=== PATIENT | female | born 1975 | race Caucasian/White ===

== ENCOUNTER 2017-03-27 13:00 | Inpatient (IN) | payer MEDICARE, MEDICAID ==
[~2017-03-27] VITALS: Ht 154.9 cm; Wt 77.9 kg
--- NOTE | ~2017-03-27 | OR ---
PATIENT'S NAME: CARTER PINA [facility] AGE: 41 Y [address] ROOM: [place] [address] LOCATION: [facility] ADMIT DATE: 04/09/2017 OR/Procedure Report DISCHARGE DATE: FAMILY PHYSICIAN: Brendan Cedeno ATTENDING PHYSICIAN: ADRIAN SHAVER SURGEON: Adrian Shaver MD REDRYING MACHINE OPERATOR: 1. NATE Mcmillan. 2. Abdullahi Fisher CST/LAYLA. DATE OF PROCEDURE: 04/09/2017 PRE-OP DIAGNOSIS: Degenerative joint disease left knee. POST-OP DIAGNOSIS: Degenerative joint disease left knee. OPERATION: Left total knee arthroplasty with computer navigation. ANESTHESIA: Spinal anesthesia plus adductor canal block plus subcutaneous and periarticular local anesthesia (ropivacaine with epinephrine and Toradol). ESTIMATED BLOOD LOSS: Less than 10 mL. DRAIN: None. SPECIMEN: None. COMPLICATIONS: None. IMPLANT SYSTEM: [place] Triathlon Size 2 left posterior stabilized femoral component Size 1 universal modular tibial baseplate 9 mm posterior stabilized size 1 X3 tibial polyethylene insert 29 mm Oval X3 patella component (triple pegged). INDICATIONS FOR SURGERY: The patient is a 41-year-old female who presents with advanced left knee degenerative joint disease and associated severely compromised activities of daily living. The patient has decided to proceed with knee replacement after having been thoroughly counseled regarding the associated risks, benefits, and limitations. We have specifically reviewed the risks and implications of infection, deep venous thrombosis, pulmonary embolism, mortality, neurovascular complications, blood transfusion (and associated potential for disease transmission or transfusion reaction), stiffness, instability, mechanical deterioration of the components (due to wear and or loosening), and the potential need for revision. We have also emphasized the importance of active involvement and compliance with post- operative physical therapy as a means of optimizing range of motion and PATIENT'S NAME: CARTER PINA [facility] AGE: 41 Y [address] ROOM: [place] [address] LOCATION: [facility] ADMIT DATE: 04/09/2017 OR/Procedure Report DISCHARGE DATE: FAMILY PHYSICIAN: Brendan Cedeno ATTENDING PHYSICIAN: ADRIAN SHAVER functional recovery. Informed consent has been granted. DESCRIPTION OF PROCEDURE: The patient was positioned supine after administration of anesthesia and prophylactic antibiotics. A well-padded pneumatic tourniquet was placed around the left proximal thigh, and the left lower extremity was prepped and draped with vigilant sterile technique. The patient's name as well as the intended operative side and procedure were confirmed with a verbal time-out involving myself, the circulating nurse, the scrub nurse, and the anesthesiologist. Examination under anesthesia demonstrated no active skin lesions or masses. There was no erythema. There was no abnormal warmth. There was a moderate effusion. Range of motion under anesthesia was from full extension to 130 degrees of flexion. There was no ligamentous insufficiency. The left lower extremity was elevated and exsanguinated with an Esmarch wrap, and the pneumatic tourniquet was inflated to 300mmHg. The knee was approached through a longitudinal midline incision. A medial parapatellar arthrotomy was performed and the patella was everted. Examination of the joint space demonstrated a moderate amount of benign-appearing translucent synovial fluid. There was a moderate sized osteophyte at the lateral aspect of the intercondylar notch. There were no loose bodies. There was no synovitis. The cruciate ligaments were intact. There was full-thickness loss of articular cartilage involving a 2 cm diameter region of the medial tibial plateau and a 2 cm x 1 cm region at the medial half of the medial femoral condyle. There were small osteophytes at the medial and lateral femoral condyles as well as the medial tibial plateau. There were small osteophytes at the medial and lateral margins of the femoral trochlea as well as the superior aspect of the patella. There were moderate grade 3 degenerative changes at the apex of the patella. There were grade 2 degenerative changes at the lateral femoral condyle and the lateral facet of the patella. There was mild inner perimeter tearing of the medial meniscus. The lateral meniscus was intact. Remnants of the menisci and cruciate ligaments were excised. The RxEye computer navigation femoral tracker was pinned in place at the distal aspect of the femoral trochlea. Absence of motion between the femur and the tracking device was confirmed manually and visually. Femoral osseous landmarks were obtained in order to calibrate the computer navigation system. Landmarks included the center of rotation of the ipsilateral hip, the center-point of the distal femur, the femoral AP axis, 57 points on the medial femoral condyle articular surface, and 57 points on the lateral femoral condyle articular surface. The RxEye computer navigation system was subsequently utilized to position the distal femoral resection block such that the distal femoral PATIENT'S NAME: CARTER PINA [facility] AGE: 41 Y [address] ROOM: [id number] [place], [place] [id number] LOCATION: [facility] ADMIT DATE: 04/09/2017 OR/Procedure Report DISCHARGE DATE: FAMILY PHYSICIAN: Brendan Cedeno ATTENDING PHYSICIAN: ADRIAN SHAVER resection was performed perfectly perpendicular to the femoral mechanical axis. The distal femoral resection was performed with a [employer] oscillating saw. The RxEye computer navigation tibial tracker was pinned in place at the anterior aspect of the tibial plateau. Absence of motion between the tibia and the tracking device was confirmed manually and visually. Tibial osseous landmarks were obtained in order to calibrate the computer navigation system. Landmarks included the center-point of the tibial plateau, the AP tibial axis, 57 points on the medial tibial plateau articular surface, 57 points on the lateral tibial plateau articular surface, the medial malleolus, and the lateral malleolus. The RxEye computer navigation system was subsequently utilized to position the proximal tibial resection block such that the proximal tibial resection was performed perfectly perpendicular to the tibial mechanical axis. The proximal tibial resection was performed with a [employer] oscillating saw. Perpendicularity of the tibial resection with respect to the tibial shaft axis was reconfirmed by inserting a spacer- block attached to an extramedullary guide kristine. External rotation of the anterior and posterior femoral resections was set parallel to the epicondylar axis and carefully adjusted in order to create a rectangular flexion gap. The box resection was performed with a reciprocating saw. Anterior and posterior chamfer resections were performed with the oscillating saw. Posterior condyle osteophytes were excised with an osteotome. All other osteophytes were excised with a rongeur. Resection of all remnants of the menisci was reconfirmed. Flexion and extension gaps were confirmed to be symmetric and well balanced with a spacer-block technique. The patella resection was performed with an oscillating saw such that the composite thickness of the reconstructed patella was equivalent to the thickness of the mary's igloo patella. Patella tracking was optimal and there was no need for a lateral retinacular release. All trial components were removed and all prepared osseous surfaces were thoroughly irrigated with pulsatile saline lavage and dried prior to cementing all three components in a single stage using [place] Simplex cement containing pre-mixed tobramycin. All extruded excess cement was removed. The entire joint space was thoroughly inspected and thoroughly irrigated with bacteriostatic pulsatile saline lavage to assure that there was no residual debris of any sort. Final range of motion was from full extension (with no passive hyperextension) to 130 degrees of flexion. Patella tracking was reconfirmed to be optimal. There was excellent anteroposterior stability at 90 degrees of flexion. There was 0 mm of medial lift-off to valgus stress in full extension. There was 1 PATIENT'S NAME: CARTER PINA [facility] AGE: 41 Y [address] ROOM: [place] [address] LOCATION: [facility] ADMIT DATE: 04/09/2017 OR/Procedure Report DISCHARGE DATE: FAMILY PHYSICIAN: Brendan Cedeno ATTENDING PHYSICIAN: ADRIAN SHAVER mm of lateral lift-off to varus stress in full extension. The arthrotomy was closed with multiple simple and [id number] interrupted #1 Vicryl. Subcutaneous tissues were thoroughly re-irrigated with bacteriostatic pulsatile saline lavage. Subcutaneous tissues were re- approximated with simple buried interrupted #0 Vicryl sutures. The skin was closed with simple buried interrupted 2-0 Vicryl sutures followed by surgical valentino. The dressing consisted of Xeroform gauze, 4x4 gauze, ABD pads and two 6-inch Rodrigo Wraps. There were no intra-operative complications. It should be noted that the physician's clinical data assistant played an active, integral role throughout this entire operation. By providing expert retraction, they greatly facilitated and expedited safe and effective exposure of the distal femur, proximal tibia and patella for preparation and implantation of the components. They were also actively involved in the patient's positioning, prepping and draping, as well as wound closure. MD ALEXYS RUSH/erica /[id number] d: 04/09/172226 t: 06/07/17 2151, OPERATIVE SUMMARY
--- NOTE | ~2017-03-27 | DS ---
PATIENT'S NAME: STANLEY PINA [facility] AGE: 41 Y [address] ROOM: [place] [address] LOCATION: [facility] ADMIT DATE: 04/09/2017 Discharge Summary DISCHARGE DATE: 04/11/2017 FAMILY PHYSICIAN: Brendan Cedeno ATTENDING PHYSICIAN: Prem Gutierrez PRIMARY DIAGNOSIS: Degenerative joint disease of the left knee. SECONDARY DIAGNOSES: 1. Anxiety and depression. 2. Gastroesophageal reflux disease. 3. Post myocardial infarction. 4. Mild mental retardation. 5. Obstructive sleep apnea. 6. Asthma. 7. Hyperlipidemia. PROCEDURE PERFORMED: Left total knee arthroplasty with computer navigation. HISTORY: The patient is a 41-year-old female, who presents with advanced left knee degenerative joint disease and associated severely compromised activities of daily living. The patient has decided to proceed with total knee arthroplasty after having been thoroughly counseled regarding the risks, benefits, limitations and alternatives. Please refer to the outpatient clinic notes and admission history and physical for this patient. HOSPITAL COURSE: The patient underwent a left total knee arthroplasty on 04/09/2017 without complications. Spinal anesthesia plus adductor canal block plus subcutaneous and periarticular local anesthesia was utilized. The patient received 24 hours of perioperative prophylactic antibiotics and remained hemodynamically stable, neurovascularly intact throughout the entire hospital course. The postoperative prophylactic deep venous thrombosis prophylaxis consisted of Xarelto 10 mg, early mobilization and pneumatic compression devices. Daily physical therapy for gait training, transfer training range of motion and quadriceps isometric exercises were received. The patient progressed well in physical therapy. On the date of discharge, 04/11/2017, the incision at the knee was healing well and showed no signs of infection. DISPOSITION: Home. DISCHARGE ACTIVITY: The patient is to bear weight as tolerated with range of motion and quadriceps isometric exercises as instructed. The operative extremity is to be elevated at least 90% of the day. There is to be sterile 4x4 gauze dressings to the incision daily. Dr. Gutierrez is to be notified PATIENT'S NAME: STANLEY PINA [facility] AGE: 41 Y [address] ROOM: [place] [address] LOCATION: [facility] ADMIT DATE: 04/09/2017 Discharge Summary DISCHARGE DATE: 04/11/2017 FAMILY PHYSICIAN: Brendan Cedeno ATTENDING PHYSICIAN: Prem Gutierrez immediately if there is any increased pain, fevers, chills erythema or drainage. DISCHARGE MEDICATIONS: 1. Xarelto 10 mg, take one tab p.o. daily for DVT prevention. 2. Tramadol 50 mg, take 1-2 tablets p.o. every 6 hours as needed for pain. FOLLOWUP: Followup appointment is to be with Dr. Gutierrez on Sunday April 16, 2017, for initial postoperative evaluation and x-rays at that time. NATE DE LEON FOR MD BRUNO RUSH/tabithal /[id number] d: 04/24/17 0304 t: 05/01/17 0809, DISCHARGE SUMMARY
[~2017-03-27 13:00] MED LIST: ADVAIR 100-501 EACH INH; ARIPIPRAZOLE5 MG PO; ASPIRIN EC81 MG PO; COZAAR25 MG PO; DEXILANT60 MG PO; FISH OIL 1,0001 EACH PO; INDERAL LA60 MG PO; LIPITOR40 MG PO; NORCO 5-325 MG1 TAB PO
[2017-03-27] MEDS ORDERED: ARIPIPRAZOLE10 MG PO (14:49)
[2017-03-27] MEDS ORDERED: MOBIC15 MG PO (14:52)
[2017-03-27] MEDS ORDERED: TRIAMTERENE-HC1 EACH PO (14:52)
[2017-03-27] MEDS ORDERED: NEURONTIN100 MG PO (14:53)
[2017-03-27] MEDS ORDERED: MYSOLINE50 M1 PO (14:53)
[2017-03-27] MEDS ORDERED: PROAIR HFA8.5 GM INH (14:54)
[2017-03-27] MEDS ORDERED: ULTRAM50 MG PO (14:55)
[2017-03-29] MEDS ORDERED: CARAFATE1 GM PO (12:00)
--- NOTE | 2017-04-10 04:27 | NUR ---
Significant Event: FROM PACU AT 1830. DRESSING IS CLEAN, DRY AND INTACT. CSM WNL. VOIDS WITHOUT DIFFICULTY. 1 ASSIST WITH TRANSFERS. DILAUDID AT 0246. ON 2 L OF OXYGEN NASAL CANNULA. Follow up:
--- NOTE | 2017-04-10 12:45 | NUR ---
Introduced self/role to patient and her mom. Patient lives independently at [facility] on the main level. Her apartment is handicap assessable. She has a walker and a toilet riser. Mom, Domi, plans to stay with her a few days. They denied any barriers to getting home or at home. Mom has an appointment around 1430 so would be here after that for dismissal. They are planning for her to be discharged tomorrow. Added my name to the marker board, will continue to follow.
--- NOTE | 2017-04-10 17:08 | NUR ---
patient doing well. dilaudid x 3, last dose at 1400, patient stated she felt too drowsy with dilaudid and wanted it to be changed. Rico visited and changed to oxycodone IR. csm adequate to left leg. bandar wrap d/i. vss. o2 on room air. midline iv saline loc to right arm. plans on dismissing with mother tomorrow. latex allergy. ambulated with one assist and walker/gait belt. bed alarm and tabs on.
--- NOTE | 2017-04-11 04:53 | NUR ---
Significant Event: Alert/oriented x3. 1 assist ambulation. 3 Voids, quantity sufficient. Possible DC today. Teds removed HS. EZ wrap in place. VSS. CSM WNL. Roxicodone at 2216; Morphine IVP 2 mg at 0225. Room air. Follow up:
--- NOTE | 2017-04-11 05:05 | NUR ---
Morphine 2mg IVP at 0508.
[2017-04-11] MEDS ORDERED: TYLENOL EXTRA500 MG PO (12:05)
[2017-04-11] MEDS ORDERED: COLACE100 MG PO (12:08)
[2017-04-11] MEDS ORDERED: MIRALAX17 GM PO (12:11)
[2017-04-11] MEDS ORDERED: XARELTO10 MG PO (12:17)
[2017-04-11] MEDS ORDERED: CELEBREX200 MG PO (12:21)
[2017-04-11] MEDS ORDERED: ROXICODONE 5MG (5 MG PO (12:22)
--- NOTE | 2017-04-11 12:22 | NUR ---
PATIENT DROWSY AT 1000, UP TO SHOWER FELT DIZZY, BP STABLE. PATIENT ASSISTED TO RECLINER. BP 124/67. TORADOL GIVEN AT 1100 FOR CONTINUED PAIN.
--- NOTE | 2017-04-11 19:15 | NUR ---
PATIENT DOING WELL. RX SLIP, RETURN APPT CARD, DISMISSAL TEACHING, JUNAID HOSE USAGE, NEW MEDS REVIEWED, BELONGINGS SENT WITH PATIENT, EZ WRAP INTACT. PATIENT AND MOM VERBALIZED UNDERSTANDING OF INSTRUCTIONS. TO FRONT DOOR IN W/C WITH NURSES AID.
--- NOTE | 2017-04-12 09:15 | NUR ---
Called Charlette's mom Domi. Yes they want [facility] thru the [employer]. [id number] Called Enedelia with [facility]. [phone] Faxed her some orders and meds after I got them from med records. [phone] Enedelia called and needed some additional information faxed. Faxed H&P and OR Summary #[id number]
== END 2017-04-11 17:41 | disposition disaster alternative care site (69) | DRG 470 ==
LOC: G3N 04-09 13:08
PROVIDERS: ADMIT Orthopaedic Surgery
PROC: 0SRD0J9 Replacement of Left Knee Joint with Synthetic Substitute, Cemented, Open Approach (ICD-10-PCS; principal; 2017-04-09)
DX: M17.12 Unilateral primary osteoarthritis, left knee (principal); I10 Essential (primary) hypertension; F32.9 Major depressive disorder, single episode, unspecified; G47.33 Obstructive sleep apnea (adult) (pediatric); I25.10 Atherosclerotic heart disease of native coronary artery without angina pectoris; E78.5 Hyperlipidemia, unspecified; K21.9 Gastro-esophageal reflux disease without esophagitis; J45.909 Unspecified asthma, uncomplicated; E66.9 Obesity, unspecified; Z79.82 Long term (current) use of aspirin; Z68.32 Body mass index [BMI] 32.0-32.9, adult
CPT/HCPCS: C1713; C1751; C1776; J1100; J1885; J2001; J2250; J2270; J2795; J7120

== ENCOUNTER → 2017-03-29 | Outpatient (CLI) | payer MEDICARE, MEDICAID ==
[~2017-03-29] MED LIST changes: +ARIPIPRAZOLE10 MG PO; +CARAFATE1 GM PO; +CELEBREX200 MG PO; +COLACE100 MG PO; +MIRALAX17 GM PO; +MOBIC15 MG PO; +MYSOLINE50 M1 PO; +NEURONTIN100 MG PO; +PROAIR HFA8.5 GM INH; +ROXICODONE 5MG (5 MG PO; +TRIAMTERENE-HC1 EACH PO; +TYLENOL EXTRA500 MG PO; +ULTRAM50 MG PO; +XARELTO10 MG PO
== END | disposition disaster alternative care site (69) ==
LOC: GNJRC 10:29
DX: Z01.812 Encounter for preprocedural laboratory examination (principal); M17.12 Unilateral primary osteoarthritis, left knee